=== PATIENT | female | born 2000 | race Hispanic/Latino ===

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

== ENCOUNTER 2021-01-04 01:58 | Emergency (ER) | payer MEDICAID ==
[~2021-01-04] VITALS: Ht 152 cm; Wt 55.0 kg
[~2021-01-04 01:58] MED LIST changes: +CIPR-225 PO; +ONDA8TAB13 PO
--- NOTE | 2021-01-04 02:26 | ED GU-Female ---
General Chief Complaint: Female Reproductive Stated Complaint: APROX 8 W PREG / VAGINAL BLEEDING Source: patient Exam Limitations: no limitations History of Present Illness Date Seen by Provider: Jan 04, 2021 Time Seen by Provider: 02:15 Initial Comments Patient is a 20-year-old female who presents to the emergency department today with a chief complaint of vaginal bleeding. Patient states that on 22 December she took 2 home test that she states were positive. Patient states that she thinks that her last menstrual cycle was sometime in November. She states that she is usually irregular with her menstrual cycle. Patient states that she thought she should have started at the beginning of December. She states that she has had 1 previous and it resulted in a D&C. This was 5 years ago. She denies any abnormal vaginal discharge. She states that onset this evening the vaginal bleeding was quite heavy and she developed some right lower quadrant pain. Patient states that she has not had any illnesses such as fevers, chills cough or congestion. She denies nausea. She states she does have some breast tenderness. She states that the bleeding seems to have lessened a little bit now. All other review of systems reviewed and negative except as stated. Timing/Duration: just prior to arrival Severity/Quality: moderate Location: RLQ Radiation: none Activities at Onset: none Prior Genitourinary Problems: none Associated Symptoms: denies symptoms Allergies and Home Medications Allergies Coded Allergies: peanut (Unverified Allergy, Unknown, 07/16/14) SPECIFICALLY PEANUT BUTTER Patient Home Medication List Home Medication List Reviewed: Yes Review of Systems Review of Systems Constitutional: see HPI EENTM: no symptoms reported Respiratory: no symptoms reported Cardiovascular: no symptoms reported Gastrointestinal: no symptoms reported Genitourinary: denies burning, denies discharge, denies dysuria, denies frequency : Yes LMP: Nov 17, 2020 Musculoskeletal: no symptoms reported Skin: no symptoms reported Past Gmjrsto-Cpgqlc-Zuuxtp Hx Immunizations Up To Date Tetanus Booster (TDap): More than 5yrs PED Vaccines UTD: Yes Date of Influenza Vaccine: Sep 19, 2013 Seasonal Allergies Seasonal Allergies: No Past Medical History Surgeries: No Respiratory: No Cardiac: No Neurological: No Reproductive Disorders: No Female Reproductive Disorders: Denies Sexually Transmitted Disease: No Gastrointestinal: No Musculoskeletal: No Endocrine: No Cancer: No Psychosocial: No Integumentary: No Blood Disorders: No Family Medical History No Pertinent Family Hx Physical Exam Vital Signs Vital Signs - First Documented 01/04/21 02:10 Temp 36.5 Pulse 101 Resp 16 B/P (MAP) 126/73 (90) Pulse Ox 98 O2 Delivery Room Air Capillary Refill : Height, Weight, BMI Height: 5'0" Weight: 120lbs. oz. 54.426643oj; 23.43 BMI Method:Stated General Appearance: WD/WN, no apparent distress HEENT: PERRL/EOMI, other (patient has a very hoarse voice) Neck: full range of motion Cardiovascular: regular rate, rhythm Respiratory: lungs clear, normal breath sounds, no respiratory distress, no accessory muscle use Gastrointestinal: soft, tenderness (RLQ) Pelvic: normal external exam, normal adnexa, no cerv. motion tender, vaginal bleeding, other (Cervical os is closed) Extremities: normal range of motion, non-tender, normal inspection, no pedal edema Neurologic/Psychiatric: no motor/sensory deficits, alert, normal mood/affect, oriented x 3 Skin: normal color, warm/dry Progress/Results/Core Measures Suspected Sepsis SIRS Temperature: Pulse: Respiratory Rate: Laboratory Tests 01/04/21 02:30: White Blood Count 13.9H Blood Pressure / Mean: Laboratory Tests 01/04/21 02:30: Platelet Count 332 Results/Orders Lab Results Laboratory Tests Test 01/04/21 02:25 01/04/21 02:30 Range/Units Urine Color YELLOW Urine Clarity CLEAR Urine pH 6.0 5-9 Urine Specific [place] 1.020 1.016-1.022 Urine Protein NEGATIVE NEGATIVE Urine Glucose (UA) NEGATIVE NEGATIVE Urine Ketones 3+ H NEGATIVE Urine Nitrite NEGATIVE NEGATIVE Urine Bilirubin NEGATIVE NEGATIVE Urine Urobilinogen 0.2 < = 1.0 MG/DL Urine Leukocyte Esterase NEGATIVE NEGATIVE Urine RBC (Auto) 3+ H NEGATIVE Urine RBC 0-2 /HPF Urine WBC NONE /HPF Urine Squamous Epithelial Cells 2-5 /HPF Urine Crystals NONE /LPF Urine Bacteria NEGATIVE /HPF Urine Casts NONE /LPF Urine Mucus NEGATIVE /LPF Urine Culture Indicated NO White Blood Count 13.9 H 4.3-11.0 10^3/uL Red Blood Count 4.48 3.80-5.11 10^6/uL Hemoglobin 13.4 11.5-16.0 g/dL Hematocrit 41 35-52 % Mean Corpuscular Volume 91 80-99 fL Mean Corpuscular Hemoglobin 30 25-34 pg Mean Corpuscular Hemoglobin Concent 33 32-36 g/dL Red Cell Distribution Width 13.1 10.0-14.5 % Platelet Count 332 130-400 10^3/uL Mean Platelet Volume 9.4 9.0-12.2 fL Immature Granulocyte % (Auto) 0 % Neutrophils (%) (Auto) 69 42-75 % Lymphocytes (%) (Auto) 21 12-44 % Monocytes (%) (Auto) 8 0-12 % Eosinophils (%) (Auto) 1 0-10 % Basophils (%) (Auto) 0 0-10 % Neutrophils # (Auto) 9.6 H 1.8-7.8 10^3/uL Lymphocytes # (Auto) 3.0 1.0-4.0 10^3/uL Monocytes # (Auto) 1.1 H 0.0-1.0 10^3/uL Eosinophils # (Auto) 0.2 0.0-0.3 10^3/uL Basophils # (Auto) 0.1 0.0-0.1 10^3/uL Immature Granulocyte # (Auto) 0.0 0.0-0.1 10^3/uL Human Chorionic Gonadotropin, Quant [id number] H <5 MIU/ML My Orders Orders - EJ PATTON MD Ua Culture If Indicated (01/04/21 02:19) Ed Iv/Invasive Line Start (01/04/21 02:19) Cbc With Automated Diff (01/04/21 02:19) Abo Rh Type (01/04/21 02:19) Hcg,Quantitative (01/04/21 02:19) Vital Signs/I&O 01/04/21 02:10 Temp 36.5 Pulse 101 Resp 16 B/P (MAP) 126/73 (90) Pulse Ox 98 O2 Delivery Room Air Capillary Refill : Progress Note : Time: 03:49 Progress Note Patient's quantitative hCG is 41,000. Bedside ultrasound does reveal a gestational sac with a flicker of a heartbeat. Pelvic exam shows mild blood in the vaginal vault. Bimanual exam shows a closed os. Patient is counseled on pelvic rest until she follows up with Dr. Ruiz whom she states she is going to see for this . We will schedule the patient for an official outpatient transvaginal pelvic ultrasound. I have advised her to take some Tylenol for the pain. Drink plenty of fluids to stay well-hydrated. She is comfortable with this plan of care. All questions are sought and answered. Patient is stable at this time for discharge with threatened miscarriage precautions. Departure Impression Primary Impression: Threatened miscarriage in early Disposition: HOME, SELF-CARE Condition: Stable Departure-Patient Inst. Decision time for Depature: 03:51 Referrals: [facility] (PCP) Primary Care Physician BANDAR RUIZ MD Patient Instructions: Threatened Miscarriage (DC) Add. Discharge Instructions: Pelvic rest until you follow-up with Dr. Ruiz. This means no sex and/or tampons. Tylenol as needed every 4-6 hours for cramping and pain. I have given you an outpatient order for a vaginal ultrasound. Please call the number on the order sheet to schedule an ultrasound Tuesday morning. Come back to the emergency room if you have worsening pain, bleeding or any other emergent concerning symptoms. EJ PATTON MD Jan 04, 2021 02:25
[2021-01-04 02:39] LABS: BASOPHILS # (AUTO) 0.1 10^3/uL (0.0-0.1); BASOPHILS % (AUTO) 0 % (0-10); EOSINOPHILS # (AUTO) 0.2 10^3/uL (0.0-0.3); EOSINOPHILS % (AUTO) 1 % (0-10); HEMATOCRIT 41 % (35-52); HEMOGLOBIN 13.4 g/dL (11.5-16.0); LYMPHOCYTES % (AUTO) 21 % (12-44); MEAN CORPUSCULAR HEMOGLOBIN 30 pg (25-34); MEAN CORPUSCULAR HGB CONC 33 g/dL (32-36); MEAN CORPUSCULAR VOLUME 91 fL (80-99); MEAN PLATELET VOLUME 9.4 fL (9.0-12.2); MONOCYTES # (AUTO) 1.1 10^3/uL (0.0-1.0); MONOCYTES % (AUTO) 8 % (0-12); NEUTROPHILS # (AUTO) 9.6 10^3/uL (1.8-7.8); NEUTROPHILS % (AUTO) 69 % (42-75); PLATELET COUNT 332 10^3/uL (130-400); WHITE BLOOD COUNT 13.9 10^3/uL (4.3-11.0)
[2021-01-04 02:43] LABS: BILIRUBIN,URINE NEGATIVE (NEGATIVE); CLARITY,URINE CLEAR; COLOR,URINE YELLOW; GLUCOSE, URINE (UA) NEGATIVE (NEGATIVE); KETONES,URINE 3+ (NEGATIVE); LEUKOCYTE ESTERASE ,URINE NEGATIVE (NEGATIVE); NITRITE,URINE NEGATIVE (NEGATIVE); PROTEIN,URINE NEGATIVE (NEGATIVE)
[2021-01-04 02:55] LABS: BACTERIA,URINE NEGATIVE /HPF; RBC,URINE 0-2 /HPF
[2021-01-04 03:58] VITALS: BP 102/86
== END 2021-01-04 03:59 | disposition home or self-care (01) ==
LOC: EDUNIT# 01:58 → ER 02:00
DX: O20.0 Threatened abortion (principal); Z3A.01 Less than 8 weeks gestation of pregnancy
CPT/HCPCS: 36415; 81000; 84702; 85025; 86900; 86901

== ENCOUNTER 2021-02-20 09:29 | Emergency (ER) | payer MEDICAID ==
[~2021-02-20] VITALS: Ht 154 cm; Wt 63.0 kg
--- NOTE | 2021-02-20 10:16 | ED GU-Female ---
General Chief Complaint: Female Reproductive Stated Complaint: VAGINAL BLEEDING Nursing Triage Note: ARRIVED VIA AMB ET WALKING TO ROOM WITH A TOWEL BETWEEN HER LEGS. 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 SHE HAD A MISCARRIAGE 2 MONTHS AGO WITH A NORMAL PERIOD SINCE AND ANOTHER PERIOD ENDING A MONTH AGO. Nursing Sepsis Screen: No Definite Risk Source: patient Exam Limitations: no limitations History of Present Illness Date Seen by Provider: Feb 20, 2021 Time Seen by Provider: 10:09 Initial Comments Patient is a 20-year-old female who presents to the emergency department today with a chief complaint of heavy vaginal bleeding onset about 30 minutes prior to arrival. Patient states that this was not after sexual intercourse or "rough sex". Patient denies any pain. No abdominal cramping. She states her last normal menstrual cycle was about a week and a half ago. She also informs me that she had a "miscarriage" 2 months ago. She was seen here in the emergency department told she was and then a week later started passing large clots. She did not get seen at the time of her vaginal bleeding and did not have an ultrasound that showed demise or miscarriage. She denies any fevers, chills, cough or congestion. No diarrhea. No burning with urination. No abnormal vaginal discharge. Patient is a G2, P0. She did have a D&C several years ago. All other review of systems reviewed and negative except as stated above. Timing/Duration: just prior to arrival Severity/Quality: severe Activities at Onset: none Associated Symptoms: denies symptoms Allergies and Home Medications Allergies Coded Allergies: peanut (Unverified Allergy, Unknown, 07/16/14) SPECIFICALLY PEANUT BUTTER Home Medications Cephalexin 500 Mg Tablet, 500 MG PO TID Prescribed by: EJ PATTON on 02/20/21 1257 Patient Home Medication List Home Medication List Reviewed: Yes Review of Systems Review of Systems Constitutional: see HPI EENTM: no symptoms reported Respiratory: no symptoms reported Cardiovascular: no symptoms reported Gastrointestinal: no symptoms reported Genitourinary: other (Heavy vaginal bleeding) : No Musculoskeletal: no symptoms reported Skin: no symptoms reported All Other Systemes Reviewed Negative Unless Noted: Yes Past Hdopryy-Qdkgka-Ayetwh Hx Patient Social History Alcohol Use: Occasionally Uses Drug of Choice: POT Smoking Status: Current Everyday Smoker Type Used: Cigarettes 2nd Hand Smoke Exposure: Yes Recent Infectious Disease Expo: No Recent Hopitalizations: No Immunizations Up To Date Tetanus Booster (TDap): More than 5yrs PED Vaccines UTD: Yes Date of Influenza Vaccine: Sep 19, 2013 Seasonal Allergies Seasonal Allergies: No Past Medical History Surgeries: No Respiratory: No Cardiac: No Neurological: No Reproductive Disorders: No Female Reproductive Disorders: Denies Sexually Transmitted Disease: No Genitourinary: No Gastrointestinal: No Musculoskeletal: No Endocrine: No HEENT: No Cancer: No Psychosocial: No Integumentary: No Blood Disorders: No Family Medical History No Pertinent Family Hx Physical Exam Vital Signs Vital Signs - First Documented 02/20/21 09:29 Temp 37.0 Pulse 122 Resp 16 B/P (MAP) 120/87 (98) Pulse Ox 98 O2 Delivery Room Air Capillary Refill : Less Than 3 Seconds Height, Weight, BMI Height: 5'0" Weight: 120lbs. oz. 54.463806is; 26.00 BMI Method:Stated General Appearance: WD/WN, no apparent distress Cardiovascular: regular rate, rhythm Respiratory: lungs clear, normal breath sounds, no respiratory distress, no accessory muscle use Gastrointestinal: normal bowel sounds, soft, tenderness (Mild suprapubic tenderness to palpation) Extremities: normal range of motion, non-tender, normal inspection Neurologic/Psychiatric: alert, normal mood/affect, oriented x 3 Skin: normal color, warm/dry Progress/Results/Core Measures Suspected Sepsis Recent Fever Within 48 Hours: No Infection Criteria Present: None New/Unexplained Altered Menta: No Sepsis Screen: No Definite Risk SIRS Temperature: Pulse: 122 Respiratory Rate: 16 Laboratory Tests 02/20/21 10:30: White Blood Count 15.7H Blood Pressure 120 /87 Mean: 98 Laboratory Tests 02/20/21 10:30: Platelet Count 327 Results/Orders Lab Results Laboratory Tests Test 02/20/21 10:23 02/20/21 10:30 Range/Units Urine Color RED H Urine Clarity CLOUDY Urine pH 7.0 5-9 Urine Specific [place] 1.025 H 1.016-1.022 Urine Protein 2+ H NEGATIVE Urine Glucose (UA) NEGATIVE NEGATIVE Urine Ketones TRACE H NEGATIVE Urine Nitrite POSITIVE H NEGATIVE Urine Bilirubin NEGATIVE NEGATIVE Urine Urobilinogen 4.0 < = 1.0 MG/DL Urine Leukocyte Esterase TRACE H NEGATIVE Urine RBC (Auto) 3+ H NEGATIVE Urine RBC TNTC H /HPF Urine WBC 5-10 H /HPF Urine Squamous Epithelial Cells 0-2 /HPF Urine Crystals NONE /LPF Urine Bacteria TRACE /HPF Urine Casts NONE /LPF Urine Mucus NEGATIVE /LPF Urine Culture Indicated YES White Blood Count 15.7 H 4.3-11.0 10^3/uL Red Blood Count 3.78 L 3.80-5.11 10^6/uL Hemoglobin 11.3 L 11.5-16.0 g/dL Hematocrit 33 L 35-52 % Mean Corpuscular Volume 87 80-99 fL Mean Corpuscular Hemoglobin 30 25-34 pg Mean Corpuscular Hemoglobin Concent 34 32-36 g/dL Red Cell Distribution Width 12.5 10.0-14.5 % Platelet Count 327 130-400 10^3/uL Mean Platelet Volume 10.0 9.0-12.2 fL Immature Granulocyte % (Auto) 0 % Neutrophils (%) (Auto) 79 H 42-75 % Lymphocytes (%) (Auto) 14 12-44 % Monocytes (%) (Auto) 6 0-12 % Eosinophils (%) (Auto) 0 0-10 % Basophils (%) (Auto) 0 0-10 % Neutrophils # (Auto) 12.4 H 1.8-7.8 10^3/uL Lymphocytes # (Auto) 2.1 1.0-4.0 10^3/uL Monocytes # (Auto) 1.0 0.0-1.0 10^3/uL Eosinophils # (Auto) 0.1 0.0-0.3 10^3/uL Basophils # (Auto) 0.1 0.0-0.1 10^3/uL Immature Granulocyte # (Auto) 0.1 0.0-0.1 10^3/uL Neutrophils % (Manual) 80 % Lymphocytes % (Manual) 16 % Monocytes % (Manual) 3 % Eosinophils % (Manual) 1 % Blood Morphology Comment NORMAL Human Chorionic Gonadotropin, Quant [id number] H <5 MIU/ML My Orders Orders - EJ PATTON MD Cbc With Automated Diff (02/20/21 10:17) Hcg,Quantitative (02/20/21 10:17) Ua Culture If Indicated (02/20/21 10:17) Abo Rh Type (02/20/21 10:17) Urine Culture (02/20/21 10:23) Manual Differential (02/20/21 10:30) Us Ob<14 Wks Sngle W/Transvag (02/20/21 11:34) Vital Signs/I&O 02/20/21 09:29 Temp 37.0 Pulse 122 Resp 16 B/P (MAP) 120/87 (98) Pulse Ox 98 O2 Delivery Room Air Capillary Refill : Less Than 3 Seconds Blood Pressure Mean: 98 Progress Note : Time: 12:56 Progress Note Patient back from ultrasound. Ultrasound shows a viable intrauterine at approximately 13 weeks. Patient has heart tones in the 130s. She is counseled on care. She is advised to follow-up with [facility]. She is advised to take vitamins. She is advised nothing per vagina including intercourse or tampons. She is given good return precautions. She verbalizes understanding. Patient's blood type is a positive. Her hemoglobin is acceptable. She does have evidence of urinary tract infection with nitrite positive urine. We will start her on Keflex. Diagnostic Imaging Comments [facility] [address] [place], [place] NAME: MIGUEL [facility] REC#: [id number] PT STATUS: REG ER : 2000 PHYSICIAN: EJ PATTON MD ADMIT DATE: 02/20/21/ER Draft Date of Exam:02/20/21 US OB<14 WKS SNGLE W/TRANSVAG INDICATION: Heavy vaginal bleeding. FINDINGS: There is a single live intrauterine fetus demonstrated with a crown-rump length of 6.8 cm consistent with a 13 week 1 day gestation. heartbeat 149. There is a large complex hemorrhage noted along the anterior inferior aspect of the uterus. This measures approximately 5.8 x 3.6 x 5 cm and is consistent with clot from vaginal hemorrhage. The cervix is visualized to be closed and measures 4.4 cm in length. Maternal adnexa appears normal. IMPRESSION: 1. Single live intrauterine fetus, 13 week 1 day gestation. 2. Large subchorionic hemorrhage demonstrated anteriorly and inferiorly in the uterus. Dictated on workstation # [id number] Dict: 02/20/21 1249 Trans: 02/20/21 1253 [facility] [id number] Interpreted by: SYDNEY WU MD Electronically signed by: Departure Impression Primary Impression: Threatened miscarriage in early Additional Impressions: Second trimester Urinary tract infection Qualified Codes: N39.0 - Urinary tract infection, site not specified; R31.9 - Hematuria, unspecified Disposition: 01 HOME, SELF-CARE Condition: Stable Departure-Patient Inst. Decision time for Depature: 12:54 Referrals: [facility] (PCP/Family) Primary Care Physician Patient Instructions: Urinary Tract Infection, Adult (DC), Bleeding With (DC) Add. Discharge Instructions: Drink plenty of fluids to stay well-hydrated. Take the antibiotics for the urinary tract infection as prescribed 3 times a day for the next week. Please follow-up with [facility] for OB/ care. Take your vitamin daily. Do not take ibuprofen or ibuprofen products. You can take Tylenol as needed for pain/discomfort. Come back to the emergency room for any worsening bleeding, pain or any other emergent concerning symptoms. Scripts Cephalexin (Cephalexin) 500 Mg Tablet 500 MG PO TID, #15 TAB Prov: EJ PATTON MD 02/20/21 EJ PATTON MD Feb 20, 2021 10:16
[2021-02-20 10:29] LABS: BILIRUBIN,URINE NEGATIVE (NEGATIVE); CLARITY,URINE CLOUDY; COLOR,URINE RED; GLUCOSE, URINE (UA) NEGATIVE (NEGATIVE); KETONES,URINE TRACE (NEGATIVE); LEUKOCYTE ESTERASE ,URINE TRACE (NEGATIVE); NITRITE,URINE POSITIVE (NEGATIVE); PROTEIN,URINE 2+ (NEGATIVE)
[2021-02-20 10:40] LABS: BACTERIA,URINE TRACE /HPF; RBC,URINE TNTC /HPF; SQUAMOUS EPITHELIAL CELL,UR 0-2 /HPF
[2021-02-20 10:40] LABS: BASOPHILS # (AUTO) 0.1 10^3/uL (0.0-0.1); BASOPHILS % (AUTO) 0 % (0-10); EOSINOPHILS # (AUTO) 0.1 10^3/uL (0.0-0.3); EOSINOPHILS % (AUTO) 0 % (0-10); HEMATOCRIT 33 % (35-52); HEMOGLOBIN 11.3 g/dL (11.5-16.0); LYMPHOCYTES # (AUTO) 2.1 10^3/uL (1.0-4.0); LYMPHOCYTES % (AUTO) 14 % (12-44); MEAN CORPUSCULAR HEMOGLOBIN 30 pg (25-34); MEAN CORPUSCULAR HGB CONC 34 g/dL (32-36); MEAN CORPUSCULAR VOLUME 87 fL (80-99); MONOCYTES % (AUTO) 6 % (0-12); NEUTROPHILS # (AUTO) 12.4 10^3/uL (1.8-7.8); NEUTROPHILS % (AUTO) 79 % (42-75); PLATELET COUNT 327 10^3/uL (130-400); WHITE BLOOD COUNT 15.7 10^3/uL (4.3-11.0)
[2021-02-20 11:14] LABS: EOSINOPHILS % (MANUAL) 1 %; LYMPHOCYTES % (MANUAL) 16 %; MONOCYTES % (MANUAL) 3 %; NEUTROPHILS % (MANUAL) 80 %; RBC MORPH NORMAL
--- NOTE | 2021-02-20 12:53 | Diagnostic Imaging Report ---
INDICATION: Heavy vaginal bleeding. FINDINGS: There is a single live intrauterine fetus demonstrated with a crown-rump length of 6.8 cm consistent with a 13 week 1 day gestation. heartbeat 149. There is a large complex hemorrhage noted along the anterior inferior aspect of the uterus. This measures approximately 5.8 x 3.6 x 5 cm and is consistent with clot from vaginal hemorrhage. The cervix is visualized to be closed and measures 4.4 cm in length. Maternal adnexa appears normal. IMPRESSION: 1. Single live intrauterine fetus, 13 week 1 day gestation. 2. Large subchorionic hemorrhage demonstrated anteriorly and inferiorly in the uterus. Dictated by: Dictated on workstation # [id number]
[2021-02-20] MEDS ORDERED: CEPH500T PO (12:57)
[2021-02-20 13:06] VITALS: BP 120/87
== END 2021-02-20 13:02 | disposition home or self-care (01) ==
LOC: EDUNIT# 09:29 → ER 09:31
DX: O20.0 Threatened abortion (principal); N39.0 Urinary tract infection, site not specified; F17.210 Nicotine dependence, cigarettes, uncomplicated
CPT/HCPCS: 36415; 76801; 76817; 81000; 84702; 85007; 85027; 86900; 86901; 87077; 87088

== ENCOUNTER 2021-02-23 07:00 | Emergency (ER) | payer MEDICAID ==
[~2021-02-23] VITALS: Ht 154 cm; Wt 68.0 kg
[~2021-02-23 07:00] MED LIST changes: +CEPH500T PO
[2021-02-23 07:12] LABS: BASOPHILS # (AUTO) 0.1 10^3/uL (0.0-0.1); BASOPHILS % (AUTO) 0 % (0-10); EOSINOPHILS % (AUTO) 0 % (0-10); HEMATOCRIT 34 % (35-52); HEMOGLOBIN 11.3 g/dL (11.5-16.0); LYMPHOCYTES # (AUTO) 1.5 10^3/uL (1.0-4.0); LYMPHOCYTES % (AUTO) 5 % (12-44); MEAN CORPUSCULAR HEMOGLOBIN 30 pg (25-34); MEAN CORPUSCULAR HGB CONC 34 g/dL (32-36); MEAN CORPUSCULAR VOLUME 90 fL (80-99); MEAN PLATELET VOLUME 10.3 fL (9.0-12.2); MONOCYTES # (AUTO) 1.6 10^3/uL (0.0-1.0); MONOCYTES % (AUTO) 5 % (0-12); NEUTROPHILS # (AUTO) 27.2 10^3/uL (1.8-7.8); NEUTROPHILS % (AUTO) 89 % (42-75); PLATELET COUNT 345 10^3/uL (130-400)
[2021-02-23] MEDS ORDERED: fentaNYL INJ 100 MCG/2 ML AMP IVP ONE (07:15)
[2021-02-23] MEDS ORDERED: ONDANSETRON 4 MG/2 ML (SDV) Z0FRAN IVP ONE (07:15)
[2021-02-23 07:16] LABS: WHITE BLOOD COUNT 30.7 10^3/uL (4.3-11.0)
--- NOTE | 2021-02-23 07:16 | ED Abdominal Pain ---
General Chief Complaint: Female Reproductive Stated Complaint: POSS MISCARRIAGE Source of Information: Patient Exam Limitations: No Limitations History of Present Illness Date Seen by Provider: Feb 23, 2021 Time Seen by Provider: 06:55 Initial Comments Patient is a 20-year-old female who presents to the emergency department with a chief complaint of severe lower abdominal cramping and heavy vaginal bleeding. Patient was seen by myself a couple of days ago and diagnosed with threatened miscarriage. She is approximately 13 weeks by ultrasound from ED ultrasound 3 days ago. Patient had some heavy vaginal bleeding at that time as well. Patient states she woke up this morning at 2 AM with severe abdominal cramping and pain. She was treated in the ED for asymptomatic bacteriuria a couple of days ago as well and placed on Keflex. Patient is a . No other complaints of recent illness or injury. All other review of systems reviewed and negative except as stated above. Timing/Duration: 4-6 Hours Severity/Quality: Severe, Cramping Location: Generalized Abdomen Associated Symptoms: Denies Symptoms Allergies and Home Medications Allergies Coded Allergies: peanut (Unverified Allergy, Unknown, 07/16/14) SPECIFICALLY PEANUT BUTTER Home Medications Cephalexin 500 Mg Tablet, 500 MG PO TID Prescribed by: EJ PATTON on 02/20/21 1257 Patient Home Medication List Home Medication List Reviewed: Yes Review of Systems Review of Systems Constitutional: see HPI EENTM: No Symptoms Reported Respiratory: No Symptoms Reported Cardiovascular: No Symptoms Reported Gastrointestinal: Abdominal Pain Genitourinary: Other (Heavy vaginal bleeding) Musculoskeletal: no symptoms reported Skin: no symptoms reported Psychiatric/Neurological: Anxiety All Other Systems Reviewed Negative Unless Noted: Yes Past Kjvoeli-Ekprow-Fypsqd Hx Patient Social History Drug of Choice: POT Type Used: Cigarettes 2nd Hand Smoke Exposure: Yes Recent Hopitalizations: No Immunizations Up To Date Tetanus Booster (TDap): More than 5yrs PED Vaccines UTD: Yes Date of Influenza Vaccine: Sep 19, 2013 Seasonal Allergies Seasonal Allergies: No Past Medical History Surgeries: No Respiratory: No Cardiac: No Neurological: No Reproductive Disorders: No Female Reproductive Disorders: Denies Sexually Transmitted Disease: No Genitourinary: No Gastrointestinal: No Musculoskeletal: No Endocrine: No HEENT: No Cancer: No Psychosocial: No Integumentary: No Blood Disorders: No Family Medical History No Pertinent Family Hx Physical Exam Vital Signs Vital Signs - First Documented 02/23/21 07:00 Temp 36.9 Pulse 107 Resp 20 B/P (MAP) 108/60 (76) Pulse Ox 98 O2 Delivery Room Air Capillary Refill : Height/Weight/BMI Height: 5'0" Weight: 120lbs. oz. 54.821239iy; 26.00 BMI Method:Stated General Appearance: WD/WN, severe distress HEENT: PERRL/EOMI Neck: full range of motion Respiratory: lungs clear, normal breath sounds, no respiratory distress, no accessory muscle use Cardiovascular: regular rate, rhythm Gastrointestinal: soft Back: normal inspection Neurologic/Psychiatric: alert, normal mood/affect, oriented x 3 Skin: normal color, warm/dry Progress/Results/Core Measures Results/Orders Lab Results Laboratory Tests Test 02/23/21 07:04 02/23/21 07:45 Range/Units White Blood Count 30.7 *H 4.3-11.0 10^3/uL Red Blood Count 3.75 L 3.80-5.11 10^6/uL Hemoglobin 11.3 L 11.5-16.0 g/dL Hematocrit 34 L 35-52 % Mean Corpuscular Volume 90 80-99 fL Mean Corpuscular Hemoglobin 30 25-34 pg Mean Corpuscular Hemoglobin Concent 34 32-36 g/dL Red Cell Distribution Width 12.8 10.0-14.5 % Platelet Count 345 130-400 10^3/uL Mean Platelet Volume 10.3 9.0-12.2 fL Immature Granulocyte % (Auto) 1 % Neutrophils (%) (Auto) 89 H 42-75 % Lymphocytes (%) (Auto) 5 L 12-44 % Monocytes (%) (Auto) 5 0-12 % Eosinophils (%) (Auto) 0 0-10 % Basophils (%) (Auto) 0 0-10 % Neutrophils # (Auto) 27.2 H 1.8-7.8 10^3/uL Lymphocytes # (Auto) 1.5 1.0-4.0 10^3/uL Monocytes # (Auto) 1.6 H 0.0-1.0 10^3/uL Eosinophils # (Auto) 0.0 0.0-0.3 10^3/uL Basophils # (Auto) 0.1 0.0-0.1 10^3/uL Immature Granulocyte # (Auto) 0.2 H 0.0-0.1 10^3/uL Neutrophils % (Manual) 87 % Lymphocytes % (Manual) 6 % Monocytes % (Manual) 2 % Band Neutrophils 5 % Blood Morphology Comment NORMAL Human Chorionic Gonadotropin, Quant [id number] H <5 MIU/ML Urine Color YELLOW Urine Clarity CLEAR Urine pH 6.0 5-9 Urine Specific [place] 1.025 H 1.016-1.022 Urine Protein NEGATIVE NEGATIVE Urine Glucose (UA) NEGATIVE NEGATIVE Urine Ketones 3+ H NEGATIVE Urine Nitrite NEGATIVE NEGATIVE Urine Bilirubin NEGATIVE NEGATIVE Urine Urobilinogen 1.0 < = 1.0 MG/DL Urine Leukocyte Esterase NEGATIVE NEGATIVE Urine RBC (Auto) TRACE-I NEGATIVE Urine RBC 0-2 /HPF Urine WBC RARE /HPF Urine Squamous Epithelial Cells 5-10 /HPF Urine Crystals PRESENT H /LPF Urine Amorphous Sediment RARE [place] URATES H /LPF Urine Bacteria TRACE /HPF Urine Casts NONE /LPF Urine Mucus LARGE H /LPF Urine Culture Indicated NO My Orders Orders - EJ PATTON MD Fentanyl Inj (Sublimaze Injection) (02/23/21 07:15) Ondansetron Injection (Zofran Injectio (02/23/21 07:15) Cbc With Automated Diff (02/23/21 07:04) Hcg,Quantitative (02/23/21 07:04) Ua Culture If Indicated (02/23/21 07:04) Manual Differential (02/23/21 07:04) Us Ob<14 Wks Sngle W/Transvag (02/23/21 07:21) Medications Given in ED Vital Signs/I&O 02/23/21 02/23/21 07:00 09:17 Temp 36.9 36.9 Pulse 107 72 Resp 20 17 B/P (MAP) 108/60 (76) 102/63 Pulse Ox 98 98 O2 Delivery Room Air Room Air Progress Progress Note : Time: 09:03 Progress Note Patient did spontaneously deliver a tiny 13week fetus in the bed. Cord was still attached to placenta. Patient was able to deliver (what appeared to be) intact placenta as well. Products were sent to the lab. Case discussed with Dr. Guy on for [facility]. Recommends follow-up early next week for repeat blood work and evaluation post demise. Patient is encouraged to drink plenty of fluids to stay well-hydrated. She is advised to come back to the emergency room if she has a recurrence of her vaginal bleeding or significant pain. She is advised nothing per vagina for 6 weeks. This means no sex and no tampons. Patient verbalizes understanding. All questions are sought and answered. Patient is stable for discharge. Diagnostic Imaging Diagonstic Imaging: Ultrasound Comments Heterogeneous uterus consistent with recent delivery. No retained products of conception are identified. Departure Impression Primary Impression: Complete miscarriage Disposition: HOME, SELF-CARE Condition: Stable Departure-Patient Inst. Decision time for Depature: 09:04 Referrals: [facility] (PCP/Family) Primary Care Physician Patient Instructions: Dealing With Miscarriage Add. Discharge Instructions: Drink plenty of fluids to stay well-hydrated. Take [id number]-[id number] Aleve, 2 pills twice daily as needed for pain. Always take this medication with food. Nothing in your vagina for the next 6 weeks this includes tampons and sexual intercourse. Return to the emergency room for any significant heavy vaginal bleeding especially with fever worsening pain or any other emergent concerning symptoms that develop. Please follow-up with [facility] next Tuesday. EJ PATTON MD Feb 23, 2021 07:16
[2021-02-23 07:25] LABS: BAND NEUTROPHILS 5 %; LYMPHOCYTES % (MANUAL) 6 %; MONOCYTES % (MANUAL) 2 %; NEUTROPHILS % (MANUAL) 87 %; RBC MORPH NORMAL
[2021-02-23 07:57] LABS: BILIRUBIN,URINE NEGATIVE (NEGATIVE); CLARITY,URINE CLEAR; COLOR,URINE YELLOW; GLUCOSE, URINE (UA) NEGATIVE (NEGATIVE); KETONES,URINE 3+ (NEGATIVE); LEUKOCYTE ESTERASE ,URINE NEGATIVE (NEGATIVE); NITRITE,URINE NEGATIVE (NEGATIVE); PROTEIN,URINE NEGATIVE (NEGATIVE)
[2021-02-23 08:18] LABS: AMORPHOUS SEDIMENT,UR RARE AMOR URATES /LPF; BACTERIA,URINE TRACE /HPF; RBC,URINE 0-2 /HPF; WBC,URINE RARE /HPF
--- NOTE | 2021-02-23 09:10 | Diagnostic Imaging Report ---
EXAMINATION: OB ultrasound INDICATION: Bleeding The recent OB ultrasound exam performed on 02/20/2021 noted a single live intrauterine fetus approximately 13 weeks 1 day gestation. There was a large subchorionic hemorrhage as well. On this study, there is no evidence for a gestational sac within the uterus. Reportedly, the patient did suffer a miscarriage in the Emergency Room. On this study, there is no increased vascularity about the endometrium to suggest retained products of conception. The uterus is enlarged consistent with patient's gestational state. The uterus measures 12.3 x 6.8 x 7.1 cm. The left ovary is unremarkable. The right ovary could not be identified. There is no solid pelvic mass or free fluid collection evident. IMPRESSION: 1. The fetus seen previously is no longer evident. By history, the patient did suffer a miscarriage. 2. There is no evidence for retained products of conception. 3. These results were discussed with Dr. Alethea Kirby in the Emergency Room. Dictated by: Dictated on workstation # [id number]
[2021-02-23 09:17] VITALS: BP 102/63
== END 2021-02-23 09:17 | disposition home or self-care (01) ==
LOC: EDUNIT# 07:00 → ER 07:02
DX: O03.9 Complete or unspecified spontaneous abortion without complication (principal); Z77.22 Contact with and (suspected) exposure to environmental tobacco smoke (acute) (chronic)
CPT/HCPCS: 36415; 51701; 76801; 76817; 81000; 84702; 85007; 85027

== ENCOUNTER 2022-10-21 00:08 | Outpatient (CLI) | payer MEDICAID ==
[~2022-10-21] VITALS: Ht 157.5 cm; Wt 80.9 kg
[2022-10-21 00:28] VITALS: BP 110/71
[2022-10-21 01:23] LABS: BILIRUBIN,URINE NEGATIVE (NEGATIVE); COLOR,URINE YELLOW; GLUCOSE, URINE (UA) NEGATIVE (NEGATIVE); KETONES,URINE NEGATIVE (NEGATIVE); LEUKOCYTE ESTERASE ,URINE 2+ (NEGATIVE); NITRITE,URINE NEGATIVE (NEGATIVE); PH,URINE 6.5 (5-9); PROTEIN,URINE NEGATIVE (NEGATIVE)
[2022-10-21 01:44] LABS: BACTERIA,URINE TRACE /HPF; CLARITY,URINE SL CLOUDY; TRICHOMONAS,URINE FEW /HPF
[2022-10-21 01:45] LABS: AMPHETAMINE SCREEN, URINE POSITIVE (NEGATIVE); BENZODIAZEPINES SCREEN URINE NEGATIVE (NEGATIVE); CANNABINOID SCREEN, URINE POSITIVE (NEGATIVE); COCAINE SCREEN URINE NEGATIVE (NEGATIVE)
[2022-10-21 01:46] LABS: BARBITURATE SCREEN URINE NEGATIVE (NEGATIVE); METHADONE STAT NEGATIVE (NEGATIVE); OPIATE SCREEN URINE NEGATIVE (NEGATIVE); OXYCODONE STAT NEGATIVE (NEGATIVE); PROPOXYPHENE STAT NEGATIVE (NEGATIVE); TRICYCLIC ANTIDEPRESSANTS SCRE NEGATIVE (NEGATIVE)
[2022-10-21] MEDS ORDERED: PREN-142 PO (02:03)
[2022-10-21] MEDS ORDERED: METR-145 PO (02:13)
[2022-10-21 02:25] VITALS: BP 110/71
--- NOTE | 2022-10-22 08:31 | Physician Query-Final Dx ---
RITA,10/22/22 0831: Clinic Account Progress/Dx Physician Query: Please give diagnosis Please include # weeks gestation Date of Service Oct 21, 2022 at 00:08 BRENDA MONTERO DO 10/22/22 1012: Clinic Account Progress/Dx DIAGNOSIS: Diagnosis 35 WEEK iup NADINE SALINAS,SepOct 22, 2022 08:31 BRENDA MONTERO DO Oct 22, 2022 10:12
== END 2022-10-21 02:25 | disposition home or self-care (01) ==
LOC: WSo 00:08 → LDRP 00:09 → WSo 02:25
PROVIDERS: ATTEND Obstetrics & Gynecology
DX: O62.9 Abnormality of forces of labor, unspecified (principal); Z3A.35 35 weeks gestation of pregnancy
CPT/HCPCS: 80306; 81000; 87077; 87088; 99213

== ENCOUNTER 2022-10-30 20:17 | Outpatient (CLI) | payer MEDICAID ==
[~2022-10-30] VITALS: Ht 154.9 cm; Wt 80.1 kg
[~2022-10-30 20:17] MED LIST changes: +METR-145 PO; +PREN-142 PO
[2022-10-30 20:48] LABS: BILIRUBIN,URINE NEGATIVE (NEGATIVE); CLARITY,URINE CLEAR; COLOR,URINE YELLOW; GLUCOSE, URINE (UA) NEGATIVE (NEGATIVE); KETONES,URINE NEGATIVE (NEGATIVE); LEUKOCYTE ESTERASE ,URINE 3+ (NEGATIVE); NITRITE,URINE NEGATIVE (NEGATIVE); PROTEIN,URINE NEGATIVE (NEGATIVE)
[2022-10-30 20:52] VITALS: BP 126/74
[2022-10-30 20:58] LABS: BACTERIA,URINE FEW /HPF
[2022-10-30 21:01] LABS: AMPHETAMINE SCREEN, URINE NEGATIVE (NEGATIVE); BARBITURATE SCREEN URINE NEGATIVE (NEGATIVE); BENZODIAZEPINES SCREEN URINE NEGATIVE (NEGATIVE); CANNABINOID SCREEN, URINE NEGATIVE (NEGATIVE); COCAINE SCREEN URINE NEGATIVE (NEGATIVE); METHADONE STAT NEGATIVE (NEGATIVE); OPIATE SCREEN URINE NEGATIVE (NEGATIVE); OXYCODONE STAT NEGATIVE (NEGATIVE); PROPOXYPHENE STAT NEGATIVE (NEGATIVE); TRICYCLIC ANTIDEPRESSANTS SCRE NEGATIVE (NEGATIVE)
[2022-10-30] MEDS ORDERED: hydrOXYzine (VISTARIL/ATARAX) 25 MG capsule/tablet ONE (21:12)
[2022-10-30] MEDS ORDERED: hydrOXYzine (VISTARIL/ATARAX) 25 MG capsule/tablet PO ONE (21:15)
--- NOTE | 2022-11-01 09:04 | Physician Query-Final Dx ---
Clinic Account Progress/Dx Physician Query: Please give diagnosis Please include # weeks gestation Date of Service Oct 30, 2022 at 20:17 ,SepNov 01, 2022 09:04
== END 2022-10-30 22:05 | disposition home or self-care (01) ==
LOC: LDRP 20:17 → WSo 20:17
PROVIDERS: ATTEND Family Medicine
DX: O62.9 Abnormality of forces of labor, unspecified (principal); Z3A.37 37 weeks gestation of pregnancy
CPT/HCPCS: 80306; 81000; 87088; 99213

== ENCOUNTER 2022-11-03 01:07 | Outpatient (CLI) | payer MEDICAID ==
[~2022-11-03] VITALS: Ht 157.4 cm; Wt 80.3 kg
[2022-11-03 01:20] VITALS: BP 129/75
[2022-11-03 03:53] LABS: AMPHETAMINE SCREEN, URINE NEGATIVE (NEGATIVE); BARBITURATE SCREEN URINE NEGATIVE (NEGATIVE); BENZODIAZEPINES SCREEN URINE NEGATIVE (NEGATIVE); CANNABINOID SCREEN, URINE NEGATIVE (NEGATIVE); CLARITY,URINE CLEAR; COCAINE SCREEN URINE NEGATIVE (NEGATIVE); COLOR,URINE YELLOW; METHADONE STAT NEGATIVE (NEGATIVE); OPIATE SCREEN URINE NEGATIVE (NEGATIVE); OXYCODONE STAT NEGATIVE (NEGATIVE); PH,URINE 6.5 (5-9); PROPOXYPHENE STAT NEGATIVE (NEGATIVE); TRICYCLIC ANTIDEPRESSANTS SCRE NEGATIVE (NEGATIVE)
[2022-11-03 03:54] LABS: BACTERIA,URINE NEGATIVE /HPF; BILIRUBIN,URINE NEGATIVE (NEGATIVE); GLUCOSE, URINE (UA) NEGATIVE (NEGATIVE); KETONES,URINE NEGATIVE (NEGATIVE); LEUKOCYTE ESTERASE ,URINE 1+ (NEGATIVE); NITRITE,URINE NEGATIVE (NEGATIVE); PROTEIN,URINE NEGATIVE (NEGATIVE); RBC,URINE RARE /HPF; SQUAMOUS EPITHELIAL CELL,UR 0-2 /HPF; WBC,URINE RARE /HPF
--- NOTE | 2022-11-04 07:56 | Physician Query-Final Dx ---
RITA,11/04/22 0756: Clinic Account Progress/Dx Physician Query: Please give diagnosis Please include # weeks gestation Date of Service Nov 03, 2022 at 01:07 BRENDA MONTERO DO 11/05/22 0816: Clinic Account Progress/Dx DIAGNOSIS: Diagnosis 38 week IUP Inadequate PNC Irregular contractions RITA,SepNov 04, 2022 07:56 BRENDA MONTERO DO Nov 05, 2022 08:16
== END 2022-11-03 02:25 ==
LOC: WSo 01:07 → LDRP 01:08 → WSo 02:25
PROVIDERS: ATTEND Obstetrics & Gynecology
DX: O47.1 False labor at or after 37 completed weeks of gestation (principal); Z3A.38 38 weeks gestation of pregnancy
CPT/HCPCS: 80306; 81000; 99213

== ENCOUNTER 2022-11-07 17:21 | Inpatient (IN) | payer MEDICAID ==
[~2022-11-07] VITALS: Ht 157.5 cm; Wt 83.0 kg
[2022-11-07] VITALS (22 sets, daily range): BP systolic 98–141; BP diastolic 58–81
[2022-11-07] MEDS ORDERED: AMPICILLIN FOR IV USE 2,000 MG in NS (IVPB) 50 ML IV SCH (18:40)
[2022-11-07] MEDS ORDERED: MINERAL OIL 30 ML UDC TOP PRN (18:45)
[2022-11-07] MEDS ORDERED: LACTATED RINGERS 1,000 ML IV SCH ×3 (18:45→20:30)
[2022-11-07 19:23] LABS: EOSINOPHILS # (AUTO) 0.3 10^3/uL (0.0-0.3); HEMATOCRIT 26 % (35-52); HEMOGLOBIN 7.5 g/dL (11.5-16.0); MEAN CORPUSCULAR HEMOGLOBIN 18 pg (25-34); MEAN CORPUSCULAR HGB CONC 28 g/dL (32-36); MEAN CORPUSCULAR VOLUME 65 fL (80-99); MEAN PLATELET VOLUME 10.7 fL (9.0-12.2)
[2022-11-07 19:25] LABS: BASOPHILS # (AUTO) 0.1 10^3/uL (0.0-0.1); BASOPHILS % (AUTO) 0 % (0-10); EOSINOPHILS % (AUTO) 1 % (0-10); LYMPHOCYTES # (AUTO) 2.4 10^3/uL (1.0-4.0); LYMPHOCYTES % (AUTO) 13 % (12-44); MONOCYTES # (AUTO) 1.1 10^3/uL (0.0-1.0); MONOCYTES % (AUTO) 6 % (0-12); NEUTROPHILS % (AUTO) 78 % (42-75); PLATELET COUNT 400 10^3/uL (130-400); WHITE BLOOD COUNT 18.1 10^3/uL (4.3-11.0)
[2022-11-07] MEDS ORDERED: D5 LR IV SOLUTION 1,000 ML IV ONE (19:27)
[2022-11-07] MEDS ORDERED: AMPICILLIN 2,000 MG/14.8 ML (IV USE) ONE (19:27)
[2022-11-07] MEDS ORDERED: fentaNYL 2 mcg/ml BUPIVA 0.125 100 ML ONE (19:28)
[2022-11-07] MEDS ORDERED: NS (IVPB) 50 ML ONE (19:29)
[2022-11-07] MEDS: D5 LR IV SOLUTION 1,000 ML IV SCH ×2 (19:36→23:14)
--- NOTE | 2022-11-07 19:38 | History & Physical-OB ---
OB - Chief Complaint & HPI Date/Time Date of Admission: Date of Admission: Nov 07, 2022 at 18:40 Date seen by a Provider: Nov 07, 2022 Time Seen by a Provider: 19:15 Chief Complaint/History OB-Reason for Admission/Chief: Onset of Labor Hx : 3 Hx Para: 0 Expected Date of Delivery: Nov 14, 2022 Gestational Age in Weeks: 39 Gestational Age in Days: 0 Other reason for admission: GBS unknown Anemia Limited care Allergies and Home Medications Allergies Coded Allergies: peanut (Unverified Allergy, Unknown, 07/16/14) SPECIFICALLY PEANUT BUTTER Patient Home Medication List Home Medication List Reviewed: Yes Metronidazole (Metronidazole) 500 Mg Tablet, 500 MG PO BID Prescribed by: LYUBOV OSBORNE on 10/21/22212 Vit No.124/Iron/FA ( Vitamin Tablet) 27 Mg Iron-800 Mcg Tablet, 1 EACH PO DAILY, (Reported) Entered as Reported by: LYUBOV OSBORNE on 10/21/22202 OB - History Hx of Present Care: Yes Ultrasounds: Normal mid trimester US Obstetrical Complications: None Medical Complications: None Obstetrical History Hx : 3 Hx Para: 0 Hx Total # of Abortions (Spona: 2 Delivery History Hx Blood Disorders: No Patient Past Medical History Negative Social History/Family History Alcohol Use: Denies Use Recreational Drug Use: No Smoking Cessation: Current every day smoker 2nd Hand Smoke Exposure: No Immunizations Influenza Vaccine Up-to-Date: No; Not Current Tetanus Booster (TDap): More than 5yrs OB - Admission Exam Physical Exam Vitals: Vital Signs 11/07/22 18:38 Temp 36.5 Pulse 105 Resp 20 B/P (MAP) 128/81 Pulse Ox 99 O2 Delivery Room Air Labs Laboratory Tests Test 11/07/22 19:15 Range/Units White Blood Count 18.1 H 4.3-11.0 10^3/uL Red Blood Count 4.08 3.80-5.11 10^6/uL Hemoglobin 7.5 L 11.5-16.0 g/dL Hematocrit 26 L 35-52 % Mean Corpuscular Volume 65 L 80-99 fL Mean Corpuscular Hemoglobin 18 L 25-34 pg Mean Corpuscular Hemoglobin Concent 28 L 32-36 g/dL Red Cell Distribution Width 21.7 H 10.0-14.5 % Platelet Count 400 130-400 10^3/uL Mean Platelet Volume 10.7 9.0-12.2 fL Immature Granulocyte % (Auto) 1 % Neutrophils (%) (Auto) 78 H 42-75 % Lymphocytes (%) (Auto) 13 12-44 % Monocytes (%) (Auto) 6 0-12 % Eosinophils (%) (Auto) 1 0-10 % Basophils (%) (Auto) 0 0-10 % Neutrophils # (Auto) 14.0 H 1.8-7.8 10^3/uL Lymphocytes # (Auto) 2.4 1.0-4.0 10^3/uL Monocytes # (Auto) 1.1 H 0.0-1.0 10^3/uL Eosinophils # (Auto) 0.3 0.0-0.3 10^3/uL Basophils # (Auto) 0.1 0.0-0.1 10^3/uL Immature Granulocyte # (Auto) 0.2 H 0.0-0.1 10^3/uL Percent Immature Platelet Fraction 9.1 H 0.0-7.6 % OB - Assessment/Plan/Diagnosis Assessment Assessment: active labor Admission Dx Labor Anemia Unknown GBS status Admission Status: Inpatient Order (span 2 midnights) Reason for Inpatient Admission: Anemia - will likely require blood transfusion . Plan Plan: Expectant Management Other Plan Will have two units of PRBCs available to be given if needed. ASHLIE SCHWARTZ DO Nov 07, 2022 19:38
[2022-11-07] MEDS ORDERED: NS IV 500 ML 500 ML IV SCH (19:45)
[2022-11-07 20:29] LABS: EOSINOPHILS % (MANUAL) 3 %; HYPOCHROMASIA MARKED; LYMPHOCYTES % (MANUAL) 18 %; MICROCYTOSIS MODERATE; MONOCYTES % (MANUAL) 4 %; NEUTROPHILS % (MANUAL) 75 %; NUCLEATED RED BLOOD CELLS 1; POIKILOCYTOSIS SLIGHT
[2022-11-07] MEDS ORDERED: NALOXONE 0.4 MG/ML 1 ML (NARCAN) VIAL IV PRN ×2 (20:30)
[2022-11-07] MEDS ORDERED: METOCLOPRAMIDE INJ 10 MG/2 ML (REGLAN) IV PRN (20:30)
[2022-11-07] MEDS ORDERED: fentaNYL 2 mcg/ml BUPIVA 0.125 100 ML EPI SCH (20:30)
[2022-11-07] MEDS ORDERED: ONDANSETRON 4 MG/2 ML (SDV) Z0FRAN IV PRN (20:30)
[2022-11-07] MEDS ORDERED: diphenhydrAMINE 50 MG/ML INJ (BENADRYL) IV PRN (20:30)
--- NOTE | 2022-11-07 21:53 | Antepartum Progress Note ---
Antepartum Progress Antepartum Progress Date Seen by Provider: Nov 07, 2022 Time Seen by Provider: 21:45 Subjective: Pt resting in bed with epidural in place. Objective: Physical Exam heart tones: CAT 1 Tocometer: Irregular SVE: 790/-3 AROM with amniohook - light meconium stained. Moderate amount. Assessment/Plan: Continue IV abx. Augment with Pitocin as needed. Anticipate a . Vitals - Labs Vital Signs - I&O Vital Signs Date Time Temp Pulse Resp B/P (MAP) Pulse Ox O2 Delivery O2 Flow Rate FiO2 11/07/22 21:30 94 18 121/79 (93) 99 Room Air 11/07/22 21:20 95 18 126/76 (93) 100 Room Air 11/07/22 21:10 95 18 126/72 (90) 100 Room Air 11/07/22 21:00 95 18 98/70 (79) 100 Room Air 11/07/22 20:50 96 18 137/69 (91) 99 Room Air 11/07/22 20:40 36.5 95 18 141/64 (89) 99 Room Air 11/07/22 20:30 90 18 121/62 (81) 100 Room Air 11/07/22 20:25 96 20 128/58 (81) 100 Room Air 11/07/22 20:20 101 20 125/70 (88) 100 Room Air 11/07/22 20:14 99 20 125/75 (92) 100 Room Air 11/07/22 20:12 92 20 128/65 (86) 99 Room Air 11/07/22 20:10 106 20 128/70 (89) 99 Room Air 11/07/22 20:08 103 20 126/66 (86) 99 Room Air 11/07/22 20:06 108 20 135/70 (91) 98 Room Air 11/07/22 20:04 110 20 132/79 (96) 98 Room Air 11/07/22 19:42 36.5 97 18 125/63 (83) 99 Room Air 11/07/22 19:30 36.5 97 18 99 Room Air 11/07/22 18:38 36.5 105 20 128/81 99 Room Air 11/07/22 18:13 Room Air 11/07/22 17:30 36.5 105 20 128/81 (97) 99 Room Air Labs Laboratory Tests 11/07/22 19:15: White Blood Count 18.1H, Red Blood Count 4.08, Hemoglobin 7.5L, Hematocrit 26L, Mean Corpuscular Volume 65L, Mean Corpuscular Hemoglobin 18L, Mean Corpuscular Hemoglobin Concent 28L, Red Cell Distribution Width 21.7H, Platelet Count 400, Mean Platelet Volume 10.7, Immature Granulocyte % (Auto) 1, Neutrophils (%) (Auto) 78H, Lymphocytes (%) (Auto) 13, Monocytes (%) (Auto) 6, Eosinophils (%) (Auto) 1, Basophils (%) (Auto) 0, Neutrophils # (Auto) 14.0H, Lymphocytes # (Auto) 2.4, Monocytes # (Auto) 1.1H, Eosinophils # (Auto) 0.3, Basophils # (Aut o) 0.1, Immature Granulocyte # (Auto) 0.2H, Neutrophils % (Manual) 75, Lymphocytes % (Manual) 18, Monocytes % (Manual) 4, Eosinophils % (Manual) 3, Nucleated Red Blood Cells 1, Percent Immature Platelet Fraction 9.1H, Hypochromasia MARKED, Poikilocytosis SLIGHT, Microcytosis MODERATE 11/07/22 20:40: ASHLIE SCHWARTZ DO Nov 07, 2022 21:53
[2022-11-07] MEDS ORDERED: CATHETER FLUSH 10 ML SYR IV SCH (22:00)
[2022-11-07 22:24] LABS: AMPHETAMINE SCREEN, URINE POSITIVE (NEGATIVE); BARBITURATE SCREEN URINE NEGATIVE (NEGATIVE); BENZODIAZEPINES SCREEN URINE POSITIVE (NEGATIVE); CANNABINOID SCREEN, URINE POSITIVE (NEGATIVE); COCAINE SCREEN URINE NEGATIVE (NEGATIVE); METHADONE STAT NEGATIVE (NEGATIVE); OPIATE SCREEN URINE NEGATIVE (NEGATIVE); OXYCODONE STAT NEGATIVE (NEGATIVE); PROPOXYPHENE STAT NEGATIVE (NEGATIVE); TRICYCLIC ANTIDEPRESSANTS SCRE NEGATIVE (NEGATIVE)
[2022-11-07] MEDS: AMPICILLIN FOR IV USE 1,000 MG in NS (IVPB) 50 ML IV SCH (23:14)
[2022-11-08] VITALS (14 sets, daily range): BP systolic 89–216; BP diastolic 53–87
[2022-11-08] MEDS ORDERED: OXYTOCIN PRE-MIX DRIP 500 ML IV ONE (01:01)
[2022-11-08] MEDS ORDERED: LIDOCAINE 1% INJ 10 ML VIAL ONE ×2 (01:01)
[2022-11-08] MEDS ORDERED: MEASLES,MUMPS,RUBELLA 1 EA INJ SQ ONE (01:45)
[2022-11-08] MEDS ORDERED: NALOXONE 0.4 MG/ML 1 ML (NARCAN) VIAL IV PRN (01:45)
[2022-11-08] MEDS ORDERED: BENZOCAINE/MENTHOL (DERMOPLAST) 56 ML CAN TP PRN (01:45)
[2022-11-08] MEDS ORDERED: WITCH HAZEL(TUCKS) 40 EA JAR TOP PRN (01:45)
[2022-11-08] MEDS ORDERED: TETANUS,DIPTH,PERTUSS P/F (BOOSTRIX) 0.5 ML VIAL IM ONE (01:45)
--- NOTE | 2022-11-08 01:47 | OB Labor & Delivery Record ---
Vag Delivery Note Vag Delivery Note Date of Delivery: 11/08/22 Preoperative Diagnosis: Malou Boucher is a (24 /Para 3 / 0, Gestational Age (wks)39 in active labor. Limited PNC. Tobacco use. Unknown GBS. Meconium stained amniotic fluid. Postoperative Diagnosis: Same Surgeon: ASHLIE SCHWARTZ Anesthesia: Epidural Delivery Type: Viable female infant, apgars 8, weight 9 Lacerations: 2nd degree perineal laceration and right periurethral laceration. Intact placenta with 3 vessel cord. No nuchal cord, body cord or shoulder dystocia Estimated Blood Loss: 300 ml Complications: None Condition: Stable Description of Procedure: The patient is a 22 year old female who presented in active labor. She was admitted and informed consent was obtained. Her labor course was uneventful. She progressed to complete dilatation and began to push. She was then set up for delivery. The infant's head was delivered atraumatically in the occiput anterior position. The shoulders and remainder of the 's body were then delivered without difficulty. Upon delivery, the was vigorous and placed on maternal chest and the mouth and nares were bulb suctioned. After a delay cord was doubly clamped and cut and the remained on maternal chest. An intact placenta with 3-vessel cord delivered and there was found to be minimal bleeding.~ Vigorous fundal massage was performed and the fundus was found to be firm. IV oxytocin was given. Examination of the vagina and perineum revealed a 2nd degree perineal laceration and right periurethral laceration, and they were both repaired in the usual fashion with 3-0 vicryl rapide suture. Following the repair, sponge, instrument and needle counts were correct. Mom and baby were both in stable condition in the labor suite. Vitals - Labs Vital Signs - I&O Vital Signs Date Time Temp Pulse Resp B/P (MAP) Pulse Ox O2 Delivery O2 Flow Rate FiO2 11/08/22 00:00 109 16 109/60 (76) Room Air 11/07/22 23:31 37.0 103 16 127/79 (95) 98 11/07/22 22:30 37.1 100 18 135/72 (93) 99 Room Air 11/07/22 22:09 36.6 95 16 123/67 (85) 100 Room Air 11/07/22 21:30 94 18 121/79 (93) 99 Room Air 11/07/22 21:20 95 18 126/76 (93) 100 Room Air 11/07/22 21:10 95 18 126/72 (90) 100 Room Air 11/07/22 21:00 95 18 98/70 (79) 100 Room Air 11/07/22 20:50 96 18 137/69 (91) 99 Room Air 11/07/22 20:40 36.5 95 18 141/64 (89) 99 Room Air 11/07/22 20:30 90 18 121/62 (81) 100 Room Air 11/07/22 20:25 96 20 128/58 (81) 100 Room Air 11/07/22 20:20 101 20 125/70 (88) 100 Room Air 11/07/22 20:14 99 20 125/75 (92) 100 Room Air 11/07/22 20:12 92 20 128/65 (86) 99 Room Air 11/07/22 20:10 106 20 128/70 (89) 99 Room Air 11/07/22 20:08 103 20 126/66 (86) 99 Room Air 11/07/22 20:06 108 20 135/70 (91) 98 Room Air 11/07/22 20:04 110 20 132/79 (96) 98 Room Air 11/07/22 19:42 36.5 97 18 125/63 (83) 99 Room Air 11/07/22 19:30 36.5 97 18 99 Room Air 11/07/22 18:38 36.5 105 20 128/81 99 Room Air 11/07/22 18:13 Room Air 11/07/22 17:30 36.5 105 20 128/81 (97) 99 Room Air I & O 11/08/22 07:00 Intake Total 1114.8 ml Balance 1114.8 ml Labs Laboratory Tests 11/07/22 19:15: White Blood Count 18.1H, Red Blood Count 4.08, Hemoglobin 7.5L, Hematocrit 26L, Mean Corpuscular Volume 65L, Mean Corpuscular Hemoglobin 18L, Mean Corpuscular Hemoglobin Concent 28L, Red Cell Distribution Width 21.7H, Platelet Count 400, Mean Platelet Volume 10.7, Immature Granulocyte % (Auto) 1, Neutrophils (%) (Auto) 78H, Lymphocytes (%) (Auto) 13, Monocytes (%) (Auto) 6, Eosinophils (%) (Auto) 1, Basophils (%) (Auto) 0, Neutrophils # (Auto) 14.0H, Lymphocytes # (Auto) 2.4, Monocytes # (Auto) 1.1H, Eosinophils # (Auto) 0.3, Basophils # (Auto) 0.1, Immature Granulocyte # (Auto) 0.2H, Neutrophils % (Manual) 75, Lymphocytes % (Manual) 18, Monocytes % (Manual) 4, Eosinophils % (Manual) 3, Nucleated Red Blood Cells 1, Percent Immature Platelet Fraction 9.1H, Hypochromasia MARKED, Poikilocytosis SLIGHT, Microcytosis MODERATE 11/07/22 20:40: Urine Opiates Screen NEGATIVE, Urine Oxycodone Screen NEGATIVE, Urine Methadone Screen NEGATIVE, Urine Propoxyphene Screen NEGATIVE, Urine Barbiturates Screen NEGATIVE, Ur Tricyclic Antidepressants Screen NEGATIVE, Urine Phencyclidine Screen NEGATIVE, Urine Amphetamines Screen POSITIVEH, Urine Methamphetamines Screen POSITIVEH, Urine Benzodiazepines Screen POSITIVEH, Urine Cocaine Screen NEGATIVE, Urine Cannabinoids Screen POSITIVEH ASHLIE SCHWARTZ DO Nov 08, 2022 01:47
[2022-11-08] MEDS: OXYTOCIN PRE-MIX DRIP 500 ML IV SCH ×2 (02:06→03:46)
[2022-11-08] MEDS ORDERED: LIDOCAINE 1% INJ 10 ML VIAL IJ ONE (02:15)
[2022-11-08] MEDS ORDERED: ACETAMINOPHEN 500 MG TAB (TYLENOL) ONE (02:24)
[2022-11-08] MEDS ORDERED: IBUPROFEN 800 MG (MOTRIN) TAB PO ONE (02:24)
[2022-11-08] MEDS: IBUPROFEN 800 MG (MOTRIN) TAB PO SCH ×3 (02:27→20:33)
[2022-11-08] MEDS: ACETAMINOPHEN 500 MG TAB (TYLENOL) PO SCH ×4 (02:27→20:33)
[2022-11-08] MEDS: AMPICILLIN FOR IV USE 1,000 MG in NS (IVPB) 50 ML IV SCH (03:46)
[2022-11-08] MEDS ORDERED: PRENATAL VITAMIN 1 EA TAB PO SCH (07:00)
[2022-11-08] MEDS ORDERED: FERROUS SULF 325 MG (IRON) TAB PO SCH (08:00)
[2022-11-08] MEDS: DOCUSATE SODIUM 100 MG (COLACE) CAP PO SCH ×2 (08:54→20:33)
[2022-11-08] MEDS: FERROUS SULF 325 MG (IRON) TAB PO SCH ×2 (08:54→17:45)
[2022-11-08] MEDS: PRENATAL VITAMIN 1 EA TAB PO SCH (08:55)
[2022-11-09] VITALS (11 sets, daily range): BP systolic 102–126; BP diastolic 56–81
[2022-11-09] MEDS: ACETAMINOPHEN 500 MG TAB (TYLENOL) PO SCH ×4 (02:54→21:50)
[2022-11-09 05:51] LABS: BASOPHILS % (AUTO) 0 % (0-10); EOSINOPHILS # (AUTO) 0.5 10^3/uL (0.0-0.3); EOSINOPHILS % (AUTO) 2 % (0-10); LYMPHOCYTES % (AUTO) 19 % (12-44); MEAN CORPUSCULAR HEMOGLOBIN 18 pg (25-34); MEAN CORPUSCULAR HGB CONC 28 g/dL (32-36); MEAN CORPUSCULAR VOLUME 64 fL (80-99); MEAN PLATELET VOLUME 10.5 fL (9.0-12.2); MONOCYTES # (AUTO) 1.2 10^3/uL (0.0-1.0); MONOCYTES % (AUTO) 6 % (0-12); NEUTROPHILS # (AUTO) 14.7 10^3/uL (1.8-7.8); NEUTROPHILS % (AUTO) 70 % (42-75); PLATELET COUNT 338 10^3/uL (130-400); WHITE BLOOD COUNT 20.9 10^3/uL (4.3-11.0)
[2022-11-09 05:57] LABS: HEMATOCRIT 20 % (35-52); HEMOGLOBIN 5.7 g/dL (11.5-16.0)
[2022-11-09] MEDS ORDERED: NS IV 500 ML 500 ML ONE (06:23)
--- NOTE | 2022-11-09 07:33 | Postpartum Progress Note ---
Note Note Day # 1 Subjective: Patient is without complaints. Ambulating, voiding. Tolerating a regular diet without nausea or vomiting. Normal lochia. Pain is well controlled with oral pain medications. Objective: Physical Exam: General - Alert and oriented, no apparent distress Abdomen - Soft, appropriately tender to palpation, non-distended, fundus firm at umbilicus Extremities - no edema, negative Flory's bilaterally Assessment: PPD 1 NVD Acute on chronic blood loss anemia Positive drug screen Plan: Routine care. Encourage breast feeding. Encourage ambulation. Ferrous sulfate supplementation. Transfusing 2 PRBC Plan for discharge tomorrow Vitals - Labs Vital Signs - I&O Vital Signs Date Time Temp Pulse Resp B/P (MAP) Pulse Ox O2 Delivery O2 Flow Rate FiO2 11/09/22 07:03 36.4 92 18 107/56 99 Room Air 11/09/22 06:48 36.2 96 18 102/59 98 Room Air 11/09/22 02:52 36.9 96 18 113/72 (86) 97 11/08/22 20:36 36.5 96 18 121/74 (90) 97 Room Air 11/08/22 16:00 36.3 94 18 120/79 (93) 98 Room Air 11/08/22 11:34 36.7 96 18 111/62 (78) 98 Room Air 11/08/22 09:25 36.7 11/08/22 08:54 36.4 95 18 89/53 (65) 98 Room Air Labs Laboratory Tests 11/09/22 05:32: White Blood Count 20.9H, Red Blood Count 3.13L, Hemoglobin 5.7#*L, Hematocrit 20*L, Mean Corpuscular Volume 64L, Mean Corpuscular Hemoglobin 18L, Mean Corpuscular Hemoglobin Concent 28L, Red Cell Distribution Width 21.2H, Platelet Count 338, Mean Platelet Volume 10.5, Immature Granulocyte % (Auto) 3, Neutrophils (%) (Auto) 70, Lymphocytes (%) (Auto) 19, Monocytes (%) (Auto) 6, Eosinophils (%) (Auto) 2, Basophils (%) (Auto) 0, Neutrophils # (Auto) 14.7H, Lymphocytes # (Auto) 4.0, Monocytes # (Auto) 1.2H, Eosinophils # (Auto) 0.5H, Basophils # (Auto) 0.0, Immature Granulocyte # (Auto) 0.5H BRENDA MONTERO DO Nov 09, 2022 07:33
[2022-11-09] MEDS: FERROUS SULF 325 MG (IRON) TAB PO SCH ×2 (09:03→17:21)
[2022-11-09] MEDS: DOCUSATE SODIUM 100 MG (COLACE) CAP PO SCH ×2 (09:04→21:51)
[2022-11-09] MEDS: PRENATAL VITAMIN 1 EA TAB PO SCH (09:04)
[2022-11-09 09:26] LABS: HEMOGLOBIN 7.2 g/dL (11.5-16.0)
[2022-11-09] MEDS ORDERED: diphenhydrAMINE 50 MG/ML INJ (BENADRYL) IVP PRN (10:15)
[2022-11-09] MEDS: IBUPROFEN 800 MG (MOTRIN) TAB PO SCH ×2 (13:57→21:51)
[2022-11-09] MEDS: CATHETER FLUSH 10 ML SYR IV SCH ×2 (21:45→21:51)
[2022-11-10] MEDS: ACETAMINOPHEN 500 MG TAB (TYLENOL) PO SCH ×3 (04:12→16:59)
[2022-11-10 04:15] VITALS: BP 104/60
[2022-11-10] MEDS: IBUPROFEN 800 MG (MOTRIN) TAB PO SCH ×2 (05:58→16:59)
[2022-11-10] MEDS: CATHETER FLUSH 10 ML SYR IV SCH ×2 (05:58→06:25)
[2022-11-10 09:10] VITALS: BP 110/64
[2022-11-10] MEDS: FERROUS SULF 325 MG (IRON) TAB PO SCH ×2 (10:49→16:58)
[2022-11-10] MEDS: DOCUSATE SODIUM 100 MG (COLACE) CAP PO SCH (10:49)
[2022-11-10] MEDS: PRENATAL VITAMIN 1 EA TAB PO SCH (10:50)
[2022-11-10 17:00] VITALS: BP 128/89
== END 2022-11-10 17:42 | disposition home or self-care (01) | DRG 806 ==
LOC: WSo 17:21 → LDRP 17:21 → WSo 18:48 → LDRP 11-08 04:28
PROVIDERS: ADMIT Obstetrics & Gynecology; ATTEND Obstetrics & Gynecology
PROC: 10907ZC Drainage of Amniotic Fluid, Therapeutic from Products of Conception, Via Natural or Artificial Opening (ICD-10-PCS; 2022-11-07)
PROC: 10E0XZZ Delivery of Products of Conception, External Approach (ICD-10-PCS; principal; 2022-11-08)
PROC: 0KQM0ZZ Repair Perineum Muscle, Open Approach (ICD-10-PCS; 2022-11-08)
PROC: 0UQMXZZ Repair Vulva, External Approach (ICD-10-PCS; 2022-11-08)
DX: O99.02 Anemia complicating childbirth (principal); D62 Acute posthemorrhagic anemia; Z37.0 Single live birth; Z3A.39 39 weeks gestation of pregnancy; O77.0 Labor and delivery complicated by meconium in amniotic fluid; O99.334 Smoking (tobacco) complicating childbirth; R21 Rash and other nonspecific skin eruption; F15.90 Other stimulant use, unspecified, uncomplicated; F12.90 Cannabis use, unspecified, uncomplicated; O71.82 Other specified trauma to perineum and vulva; O70.1 Second degree perineal laceration during delivery; F17.210 Nicotine dependence, cigarettes, uncomplicated; Z28.310 Unvaccinated for COVID-19
CPT/HCPCS: 36415; 80306; 85007; 85014; 85018; 85025; 85027; 86780; 86850; 86900; 86901; 86920; 99212

== ENCOUNTER → 2023-08-26 | Outpatient (CLI) | payer MEDICAID ==
--- NOTE | 2023-08-26 17:17 | Diagnostic Imaging Report ---
INDICATION: anatomical survey. TECHNIQUE: Multiple real-time grayscale images were obtained over the gravid uterus. COMPARISON: None. FINDINGS: Cephalic position quintana viable IUP measures 31 weeks 1 day for sonographic date of confinement 10/27/2023. The placenta anterior fundal with no abruption or previa. heart rate regular at 158 bpm. The cervix is nondilated and measures 5 cm in length. Anatomical survey is normal. Biometrical measurements are as follows: Biparietal 7.77 cm, age 31 weeks 2 days. Head circumference 27.85 cm, age 30 weeks 4 days. Abdominal circumference 28.23 cm, age 32 weeks 2 days. Femur length 5.79 cm, age 30 weeks 3 days. Sonographic estimate age: 31 weeks 1 days. Sonographic estimated date of delivery: 10/27/2023. Estimated Weight: 1759 gm (+/- 257 gm). LMP percentile: 76%. heart rate: 158 beats per minute. number: 1 of 1. IMPRESSION: Quintana viable IUP in cephalic position with normal anatomical survey and no pathological finding, measures 31 week 1 day. Dictated by: Dictated on workstation # [id number]
== END ==
LOC: RAD 14:14
PROVIDERS: ATTEND Nurse Practitioner Women's Health
DX: Z34.83 Encounter for supervision of other normal pregnancy, third trimester (principal); Z3A.31 31 weeks gestation of pregnancy
CPT/HCPCS: 76805